=== PATIENT | male | born 1975 | race Caucasian/White ===

== ENCOUNTER 2018-04-09 18:19 | Emergency (ER) | payer BC ==
[~2018-04-09] VITALS: Ht 172.7 cm; Wt 89.0 kg
[2018-04-09] MEDS ORDERED: ERYTHROMYC1 APPLICAT LEFT EYE (19:28)
[2018-04-09 19:46] VITALS: BP 124/85
== END 2018-04-09 19:47 | disposition home or self-care (01) ==
LOC: EME 18:19
DX: T15.92XA Foreign body on external eye, part unspecified, left eye, initial encounter (principal); X58.XXXA Exposure to other specified factors, initial encounter; Y93.89 Activity, other specified; F17.200 Nicotine dependence, unspecified, uncomplicated
CPT/HCPCS: 99281; 99283